=== PATIENT | female | born 1980 | race African-American/Black ===

== ENCOUNTER → 2023-10-19 | Outpatient (REF) | LOC: M LAB 11:21 | PROVIDERS: ATTEND Nurse Practitioner Adult Health | DX: Z00.00 Encounter for general adult medical examination without abnormal findings (principal) ==

== ENCOUNTER → 2023-10-20 | Outpatient (REF) | LOC: M LAB REF 10-19 11:24 | PROVIDERS: ATTEND Nurse Practitioner Adult Health | DX: Z02.1 Encounter for pre-employment examination (principal) ==

== ENCOUNTER → 2025-01-24 | Outpatient (CLI) | payer BC | LOC: M RAD 10:34 | PROVIDERS: ATTEND Physician Assistant | DX: R06.02 Shortness of breath (principal); R05.9 Cough, unspecified ==